=== PATIENT | female | born 1995 | race Caucasian/White ===

== ENCOUNTER 2019-05-05 16:43 | Inpatient (IN) | payer OTHER ==
[2019-05-06 01:14] VITALS: BMI 37.9
[2019-05-06] MEDS ORDERED: Acetaminophen 500 MG TAB PO PRN (01:42)
[2019-05-06] MEDS ORDERED: Lactated Ringer's 1,000 ML IV SCH (01:42)
[2019-05-06] MEDS ORDERED: Promethazine HCl 25 MG/ML VIAL IM PRN ×2 (01:42→11:18)
[2019-05-06] MEDS ORDERED: hydrALAZINE 20 MG/ML VIAL SLOW IVP PRN (01:42)
[2019-05-06] MEDS ORDERED: NS w/ Oxytocin 10 units 500 ML IVPB SCH (01:45)
[2019-05-06] MEDS: Misoprostol 100 MCG TAB VAG SCH ×3 (02:09→20:10)
[2019-05-06] MEDS: Lactated Ringer's 1,000 ML IV SCH ×4 (02:10→20:09)
[2019-05-06 02:16] LABS: Hemoglobin 13.4 g/dL (12.0-16.0); Mean Corpuscular HGB CONC 34.8 g/dL (32.0-36.0); Mean Corpuscular Hemoglobin 31.7 pg (27.0-31.0); Mean Platelet Volume 9.9 fL (7.4-10.4); Platelet Count 241 thou/uL (130-400); RBC Distribution Width 12.7 % (11.5-14.5); Red Blood Cell (RBC) Count 4.23 mill/uL (4.20-5.40)
[2019-05-06] MEDS: Butorphanol Tartrate 1 MG/ML VIAL SLOW IVP PRN ×2 (02:16→05:26)
[2019-05-06 02:53] LABS: HBSAg Index 0.39 S/CO (0-0.99); Hep B Surf Ag Non-Reactive S/CO (NonReactive)
[2019-05-06 04:13] LABS: Syphilis Antibody Nonreactive (Nonreactive); Syphilis Antibody Index 0.07 S/CO (<1.00 Non-Reactive)
[2019-05-06 05:12] LABS: ALT (SGPT) 14 U/L (8-55); AST (SGOT) 17 U/L (5-34); Albumin 3.6 g/dL (3.5-5.0); Alkaline Phosphatase 284 U/L (40-150); Anion Gap 17 mmol/L (10-20); BUN (Urea Nitrogen) 13 mg/dL (7.0-18.7); Bilirubin, Total 0.2 mg/dL (0.2-1.2); Calc. Creatinine Clearance 170 mL/min (70-130); Calcium 9.4 mg/dL (7.8-10.44); Carbon Dioxide 18 mmol/L (22-29); Chloride 105 mmol/L (98-107); Estimated GFR-MDRD Greater than 90; Globulin 3.2 g/dL (2.4-3.5); Glucose 93 mg/dL (70-105); Potassium 4.2 mmol/L (3.5-5.1); Protein, Total 6.8 g/dL (6.0-8.3); Sodium 136 mmol/L (136-145)
[2019-05-06 05:31] LABS: Creatinine, Urine 75.41 mg/dL (47-110)
[2019-05-06 06:14] LABS: Amphetamine Not Detected (NotDetected); Barbiturates Screen Not Detected (NotDetected); Benzodiazepine Screen Not Detected (NotDetected); Cocaine Metabolite Screen Not Detected (NotDetected); Medtox Control Line Valid? VALID (VALID); Medtox Reader # READER 4; Methadone Not Detected (NotDetected); Methamphetamine Not Detected (NotDetected); Opiate Screen Not Detected (NotDetected); Oxycodone Screen Not Detected (NotDetected); Phencyclidine (PCP) Not Detected (NotDetected); THC/Cannabinoid Screen Not Detected (NotDetected); Tricyclic Screen Not Detected (NotDetected)
[2019-05-06] MEDS ORDERED: Fentanyl 4 mcg/Bup 0.1% Cadd 100 ML ONE ×3 (07:00→19:51)
[2019-05-06] MEDS ORDERED: Lidocaine 1.5%/Epinephrine 1:200,000 5 ML AMPUL IJ ONE (07:54)
[2019-05-06] MEDS ORDERED: Bupivacaine/Epinephrine 0.25% 30 ML VIAL ONE (09:00)
[2019-05-06] MEDS: Ondansetron PF 4 MG/2 ML Vial IVP PRN ×2 (10:25→17:49)
[2019-05-06] MEDS ORDERED: Lactated Ringer's 500 ML IV PRN (11:18)
[2019-05-06] MEDS ORDERED: ePHEDrine/0.9% NaCl/PF SYRINGE 50 mg/10 ml SLOW IVP PRN (11:18)
[2019-05-06] MEDS ORDERED: Ondansetron PF 4 MG/2 ML Vial IVP PRN (11:18)
[2019-05-06] MEDS ORDERED: diphenhydrAMINE 50 MG/ML VIAL IVP PRN (11:18)
[2019-05-06] MEDS ORDERED: Acetaminophen 325 MG TAB PO PRN (11:18)
[2019-05-06] MEDS ORDERED: Naloxone HCl 0.4 mg/ml Vial IVP PRN ×2 (11:18)
[2019-05-06] MEDS ORDERED: Fentanyl 4 mcg/Bupivacaine 0.1% Cassette 100 ML EPIDURAL SCH (11:30)
[2019-05-06] MEDS ORDERED: Communication Order-Pharmacy FS SCH (11:30)
--- NOTE | 2019-05-06 12:08 | PDOC.EVN ---
Event Note - Event Note Event Note: Here to assess the patient. Doing well. Has epidural. SVE /-1. FHT Category I. AROM with clear fluid. CTX every 3 minutes. Continue pitocin.
--- NOTE | 2019-05-06 12:10 | PDOC.LDHP ---
Labor and Delivery H&P Chief complaint: scheduled induction HPI: 39 week IUP. Favorable cervix. Here for elective induction at term. Current gestational age (weeks): 39 Due date: 05/08/19 Dating criteria: last menstrual period, first trimester ultrasound Grav: 1 Para: 0 Current complications: none Abnormal US findings: No Current medications: pre- vitamins Allergies/Adverse Reactions: Allergies Allergy/AdvReac Type Severity Reaction Status Date / Time Penicillins Allergy Mild Rash Verified 05/06/19 01:06 Social history: drug use (Stopped when became - marijuana on first visit but none since then) - Physical Exam Vital signs reviewed and normal: yes General: NAD Heart: RRR Lungs: CTAB Abdomen: gravid Extremeties: no edema FHT: category 1 - Vaginal Exam cm dilated: 2 Effacement: 75% Station: -1 - OB Labs Blood type: A RH: positive Antibody Screen: negative HIV: negative RPR: negative HEPSAg: negative 1 hour GCT: negative GBS: negative Urine drug screen: negative Rubella: immune - Assessment L&D Assessment: elective induction at term - Plan Plan: admit to L&D, cervical ripening, labor augmentation if indicated
--- NOTE | 2019-05-06 16:42 | PDOC.EVN ---
Event Note - Event Note Event Note: Here to see patient. Feeling comfortable with contractions. Two late decelerations when tried to go up on pitocin but good recovery when decreased again. Currently category I. SVE /-1. IUPC placed. BP normal. Continue expectant management.
[2019-05-06] MEDS: Mag-Al 1200 mg/1200 mg/30 ML UDCUP PO PRN (20:04)
[2019-05-06] MEDS ORDERED: NS / Oxytocin 40 units/1000ml 1,000 ML ONE (21:08)
[2019-05-06] MEDS ORDERED: Lidocaine 1% (PF) 30 ML VIAL ONE (21:08)
[2019-05-07] MEDS ORDERED: Misoprostol 200 MCG TAB ONE ×2 (00:13→00:14)
[2019-05-07] MEDS: Misoprostol 100 MCG TAB VAG SCH ×2 (00:18→07:35)
--- NOTE | 2019-05-07 00:34 | PDOC.OPDEL ---
OB Operative/Delivery Note Delivery Dr/Surgeon: Gael Pre-Delivery Diagnosis: elective induction Procedure/Post Delivery Dx: spontaneous vaginal delivery Weeks gestation: 39 Anesthesia: epidural - Findings A Sex: male - 1 min: 7 - 5 min: 9 - Additional Findings/Plan Placenta delivered: spontaneous Repaired Obstetrical Laceration: episiotomy (Prolonged held up by a tight band of tissue, small incision made with scissors with near immediate delivery of the remainde rof the head. Second degree, just left of midline, repaired with 2.0 vicryl in standard running fashion.) Estimated blood loss: 650 Compilations/Other Findings: Mild shoulder dystocia, relieved with McRobert's and suprapubic pressure. Vigorous infant immediately after delivery. No nuchal cord. After delivery of the placenta there was brisk bleeding that resolved with pitocin, bimanual massage, and rectal cytotec 800mcg. Additional clot removed after repair of the episiotomy. Post delivery plan: routine recovery
[2019-05-07] MEDS ORDERED: NS / Oxytocin 40 units/1000ml 1,000 ML ONE (01:25)
[2019-05-07] MEDS ORDERED: Milk Of Magnesia 30 ML UDCUP PO PRN (02:31)
[2019-05-07] MEDS ORDERED: NS / Oxytocin 40 units/1000ml 1,000 ML IV SCH (02:31)
[2019-05-07] MEDS ORDERED: Bisacodyl 10 MG SUPP PR PRN (02:31)
[2019-05-07] MEDS ORDERED: Benzocaine-Menthol 82.5 ML CAN TOP PRN (02:31)
[2019-05-07] MEDS ORDERED: hydrALAZINE 20 MG/ML VIAL SLOW IVP PRN (02:31)
[2019-05-07] MEDS ORDERED: Preparation H Ointment 28 GM TUBE PR PRN (02:31)
[2019-05-07] MEDS: HYDROcodone/Acetaminophen 5/325 mg Tablet PO PRN ×6 (03:06→21:39)
[2019-05-07] MEDS: Ibuprofen 800 MG TAB PO SCH ×3 (05:21→21:39)
[2019-05-07 06:56] LABS: Hemoglobin 10.3 g/dL (12.0-16.0); Mean Corpuscular HGB CONC 34.4 g/dL (32.0-36.0); Mean Corpuscular Hemoglobin 31.4 pg (27.0-31.0); Mean Corpuscular Volume 91.2 fL (78.0-98.0); Mean Platelet Volume 9.7 fL (7.4-10.4); Platelet Count 169 thou/uL (130-400); RBC Distribution Width 12.7 % (11.5-14.5); White Blood Cell (WBC) Count 18.1 thou/uL (4.8-10.8)
[2019-05-07] MEDS ORDERED: Adacel (T-DAP) 0.5 ML SYRINGE IM ONE (09:00)
[2019-05-07] MEDS: Docusate Calcium (SURFAK) 240 MG CAP PO SCH ×2 (09:27→21:39)
[2019-05-07] MEDS: Ferrous Sulfate 325 MG TAB PO SCH ×2 (09:27→17:36)
[2019-05-08] MEDS: Mag-Al 1200 mg/1200 mg/30 ML UDCUP PO PRN (00:04)
[2019-05-08] MEDS: HYDROcodone/Acetaminophen 5/325 mg Tablet PO PRN ×4 (03:46→19:52)
[2019-05-08] MEDS: Ibuprofen 800 MG TAB PO SCH ×3 (06:18→21:36)
[2019-05-08] MEDS: Ferrous Sulfate 325 MG TAB PO SCH ×2 (08:41→17:37)
[2019-05-08] MEDS: Docusate Calcium (SURFAK) 240 MG CAP PO SCH ×2 (09:45→21:36)
--- NOTE | 2019-05-08 10:35 | PDOC.PP ---
Post Progress Note Post Day #: 1 Subjective: Doing well. Ambulating more. Still working on BF. Baby with jaundice now needing bili lights. PO intake tolerated: yes Flatus: yes Ambulation: yes Vital Signs (12 hours) Temp Pulse Resp BP Pulse Ox 05/08/19 07:49 97.7 F 95 20 131/79 99 05/08/19 03:50 97.6 F 95 20 126/71 97 05/07/19 23:55 97.8 F 95 18 133/84 100 Weight Weight 214 lb - Physical Examination General: NAD Cardiovascular: no m/r/g, RRR Respiratory: clear to auscultation bilaterally, non-labored breathing Abdominal: + bowel sounds, lochia, no distention, appropriately TTP Neurological: no gross focal deficits Psychiatric: A&Ox3 Result Diagrams: 05/07/19 06:25 05/06/19 01:31 Additional Labs: Post Labs Blood Type A POSITIVE 05/06/19 02:25 Hep Bs Antigen Non-Reactive S/CO (NonReactive) 05/06/19 02:03 Rubella IgG Antibody 5.24 index (Immune >0.99) 05/06/19 01:31 (1) Vaginal delivery Code(s): O80 - ENCOUNTER FOR FULL-TERM UNCOMPLICATED DELIVERY Status: Acute - Assessment/Plan Routine PP care Continue to work on BF D/C home tomorrow.
[2019-05-08] MEDS ORDERED: Furosemide 20 MG TAB PO SCH (20:30)
[2019-05-09] MEDS: HYDROcodone/Acetaminophen 5/325 mg Tablet PO PRN ×3 (00:46→11:01)
[2019-05-09] MEDS ORDERED: Furosemide 20 MG TAB PO PRN (02:30)
[2019-05-09] MEDS: Ibuprofen 800 MG TAB PO SCH ×2 (06:05→13:41)
[2019-05-09 07:51] VITALS: BP 131/82; TEMP 97.7
[2019-05-09] MEDS: Ferrous Sulfate 325 MG TAB PO SCH (08:00)
[2019-05-09] MEDS: Docusate Calcium (SURFAK) 240 MG CAP PO SCH (08:09)
[2019-05-09] MEDS ORDERED: Lanolin Ointment 7 GM TUBE TOP PRN (12:28)
[2019-05-09] MEDS ORDERED: Furosemide 20 MG TAB PO SCH (12:30)
--- NOTE | 2019-05-09 14:06 | PDOC.PP ---
Post Progress Note Post Day #: 2 Subjective: Concerned about baby under phototx. Working on . Unable to latch so far. Pumping. PO intake tolerated: yes Flatus: yes Ambulation: yes Vital Signs (12 hours) Temp Pulse Resp BP Pulse Ox 05/09/19 07:50 97.7 F 90 20 131/82 98 05/09/19 03:35 98.0 F 104 H 18 132/80 98 Weight Weight 214 lb - Physical Examination General: NAD Cardiovascular: no m/r/g, RRR Respiratory: clear to auscultation bilaterally, non-labored breathing Abdominal: + bowel sounds, lochia, no distention, appropriately TTP Extremities: negative homans (B) (2+ edema in feet and ankles bilaterally) Result Diagrams: 05/07/19 06:25 05/06/19 01:31 Additional Labs: Post Labs Blood Type A POSITIVE 05/06/19 02:25 Hep Bs Antigen Non-Reactive S/CO (NonReactive) 05/06/19 02:03 Rubella IgG Antibody 5.24 index (Immune >0.99) 05/06/19 01:31 (1) Vaginal delivery Code(s): O80 - ENCOUNTER FOR FULL-TERM UNCOMPLICATED DELIVERY Status: Acute (2) Edema Code(s): R60.9 - EDEMA, UNSPECIFIED Status: Acute - Assessment/Plan Routine PP care Gave lasix overnight for swelling and it improved some Very anxious about baby - reassured D/C to [facility]
== END 2019-05-09 15:39 | disposition home or self-care (01) | DRG 807 ==
LOC: L&D 05-06 00:29 → 3SE 05-07 02:28 → EDSTATUS 05-08 16:42
PROVIDERS: ADMIT Family Medicine; ATTEND Family Medicine
PROC: 10E0XZZ Delivery of Products of Conception, External Approach (ICD-10-PCS; principal; 2019-05-07)
PROC: 10H07YZ Insertion of Other Device into Products of Conception, Via Natural or Artificial Opening (ICD-10-PCS; 2019-05-07)
PROC: 3E033VJ Introduction of Other Hormone into Peripheral Vein, Percutaneous Approach (ICD-10-PCS; 2019-05-07)
PROC: 10907ZC Drainage of Amniotic Fluid, Therapeutic from Products of Conception, Via Natural or Artificial Opening (ICD-10-PCS; 2019-05-07)
PROC: 0W8NXZZ Division of Female Perineum, External Approach (ICD-10-PCS; 2019-05-07)
DX: O66.0 Obstructed labor due to shoulder dystocia (principal); Z37.0 Single live birth; Z88.0 Allergy status to penicillin; Z3A.39 39 weeks gestation of pregnancy; O76 Abnormality in fetal heart rate and rhythm complicating labor and delivery
CPT/HCPCS: 36415; 51702; 80053; 80306; 82570; 84156; 85027; 86762; 86780; 86850; 86900; 86901; 87340; J0360; J0595; J2001; J2405; J2590; J3490